=== PATIENT | male | born 1980 | race Caucasian/White ===

== ENCOUNTER 2024-01-22 21:16 | Emergency (ER) | payer SELFPAY ==
[~2024-01-22] VITALS: Ht 170.2 cm; Wt 72.6 kg
[2024-01-22 22:10] VITALS: BP 122/78; PULSE 80; TEMP 97.4
[2024-01-22] MEDS ORDERED: SULF-59 PO (23:55)
[2024-01-23] MEDS: KETOROLAC 30 MG/ML VIAL IM ONE (00:12)
[2024-01-23] MEDS: ACETAMINOPHEN EXTRA STRENGTH 500 MG TAB PO ONE (00:21)
== END 2024-01-23 00:50 | disposition home or self-care (01) ==
LOC: MED 21:16
DX: S60.410A Abrasion of right index finger, initial encounter (principal); Z79.899 Other long term (current) drug therapy; X58.XXXA Exposure to other specified factors, initial encounter; Y93.89 Activity, other specified; Y92.89 Other specified places as the place of occurrence of the external cause; Y99.8 Other external cause status
CPT/HCPCS: 73130; 96372; 99283; J1885